=== PATIENT | female | born 1950 | race Caucasian/White ===

== ENCOUNTER → 2017-07-03 | Outpatient (CLI) | payer OTHER, MEDICAID | LOC: M.RAD 13:48 | DX: Z12.31 Encounter for screening mammogram for malignant neoplasm of breast (principal); M81.0 Age-related osteoporosis without current pathological fracture; I10 Essential (primary) hypertension; Z78.0 Asymptomatic menopausal state ==

== ENCOUNTER → 2017-07-27 | Outpatient (CLI) | payer OTHER, MEDICAID ==
--- NOTE | 2017-07-27 14:47 | EXE ---
[place] [address] STRESS ECHOCARDIOGRAM Name: AYALAJEFFRY BOOTHE Room: [facility]#: [id number] Admission: 07/27/17 Attend Phys: Lars Roberts MD Discharge: Date of : 54 Date of Service: 07/27/17 1446 Report #: [id number] THIS REPORT FOR: //name// APPROVED REPORT Study performed: 07/27/2017 13:12:47 Exam: Stress Echocardiogram Indication: Chest pain Patient Location: Out-Patient Stress Nurse: Muna Kulkarni RN Supervising Physician: Stanislaw Livingston MD Status: routine Ht: 5 ft 2 in HR: 73 bpm BP: 103/76 mmHg Rhythm: NSR Medical History Cardiac Risk Factors: HTN, Hyperlipidemia, DM Procedure The patient underwent an Exercise Stress Test using the Chace Protocol. Blood pressure, heart rate, and EKG were monitored. An Echocardiogram was performed by recreational therapy technician in four stages in quad fashion. At peak stress, four selected images were obtained and placed side by side with resting images for comparison. Stress Test Details Stress Test: Exercise stress testing was performed using a Chace protocol. HR Resting HR: 73 bpm Max Heart Rate (APMHR): 155 bpm Max HR Achieved: 152 bpm Target HR (85% APMHR): 131 bpm % of APMHR: 98 Recovery HR: 83 bpm HR response to stress: Normal HR response to stress BP Resting BP: 103/76 mmHg Max BP: 187/84 mmHg Recovery BP: 105/71 mmHg ECG Resting ECG: [place] [address] STRESS ECHOCARDIOGRAM Name: JEFFRY AYALA Room: [facility]#: [id number] Admission: 07/27/17 Attend Phys: Lars Roberts MD Discharge: Date of : 54 Date of Service: 07/27/17 1446 Report #: [id number] Stress ECG: Sinus Rhythm ST Change: Normal Recovery ECG: Sinus Rhythm Recovery ST Change: Normal Clinical Reason for Termination: Maximal effort Stress Symptoms: Fatigue Exercise duration: 4.5 min 7 sec Highest Stage Achieved: Stage 2: 2.5 mph at 12% grade. Exercise capacity: 7.05 METs Stress ECG Conclusion negative ecg Pre-Stress Echo The resting Echocardiogram showed normal left ventricular contractility with an estimated Ejection Fraction of about 60-65%. LV chamber size decreases, LV ejection fraction increases, no new wall motion abnormalities are seen. Conclusion Clinical Response: Non-ischemic Exercise Capacity: reduced Stress ECG Response: Non-ischemic Stress Echo Images: Non-ischemic Negative stress echo for ischemia at the level of exercise achieved Other Information Study Quality: Good <Conclusion> Negative stress echo for ischemia at the level of exercise achieved <ELECTRONICALLY SIGNED> By: Stanislaw Livingston MD, FACC 07/27/17 1446 1446 1446 Stanislaw Livingston MD, FACC /INF
== END ==
LOC: M.CRD 12:36
DX: I10 Essential (primary) hypertension (principal)

== ENCOUNTER 2018-03-10 19:19 | Emergency (ER) | payer OTHER, MEDICAID ==
[~2018-03-10] VITALS: Ht 162.6 cm; Wt 70.3 kg
[2018-03-10] MEDS ORDERED: ASPIR 8181 MG PO (19:30)
[2018-03-10] MEDS ORDERED: LIPITOR40 MG PO (19:31)
[2018-03-10] MEDS ORDERED: KERYDIN10 ML TP (19:31)
[2018-03-10] MEDS ORDERED: SYNTHROID25 MC1 PO (19:31)
[2018-03-10] MEDS ORDERED: GLUCOPHAGE XR500 MG (19:32)
[2018-03-10] MEDS ORDERED: NEXIUM40 MG PO (19:32)
[2018-03-10] MEDS ORDERED: LISINOPRIL10 MG PO (19:32)
[2018-03-10] MEDS ORDERED: ANTIVERT25 MG PO (19:32)
[2018-03-10] MEDS ORDERED: SKELAXIN 800 M800 M1 PO (19:33)
[2018-03-10] MEDS ORDERED: BACTRIM DS TAB1 EACH PO (19:36)
[2018-03-10] MEDS ORDERED: HYDROXYZINE HCL25 M1 PO (19:36)
[2018-03-10 19:47] VITALS: BP 167/80
== END 2018-03-10 19:48 | disposition home or self-care (01) ==
LOC: M.ERS 19:19
DX: L50.9 Urticaria, unspecified (principal); I10 Essential (primary) hypertension; Z90.710 Acquired absence of both cervix and uterus; W57.XXXA Bitten or stung by nonvenomous insect and other nonvenomous arthropods, initial encounter; Y93.89 Activity, other specified; Y92.89 Other specified places as the place of occurrence of the external cause; Y99.8 Other external cause status

== ENCOUNTER → 2018-08-29 | Outpatient (CLI) | payer OTHER, MEDICAID ==
[~2018-08-29] MED LIST: ANTIVERT25 MG PO; ASPIR 8181 MG PO; BACTRIM DS TAB1 EACH PO; GLUCOPHAGE XR500 MG; HYDROXYZINE HCL25 M1 PO; KERYDIN10 ML TP; LIPITOR40 MG PO; LISINOPRIL10 MG PO; NEXIUM40 MG PO; SKELAXIN 800 M800 M1 PO; SYNTHROID25 MC1 PO
== END ==
LOC: M.RAD 11:00
DX: Z12.31 Encounter for screening mammogram for malignant neoplasm of breast (principal)

== ENCOUNTER → 2019-05-01 | Outpatient (CLI) | payer OTHER, MEDICAID | LOC: M.ULTRA 04-30 09:00 | DX: R16.0 Hepatomegaly, not elsewhere classified (principal); R63.0 Anorexia; Z88.8 Allergy status to other drugs, medicaments and biological substances ==

== ENCOUNTER → 2019-10-17 | Outpatient (CLI) | payer OTHER, MEDICAID | LOC: M.RAD 08-09 14:03 | PROVIDERS: ATTEND Nurse Practitioner | DX: Z12.31 Encounter for screening mammogram for malignant neoplasm of breast (principal); Z00.00 Encounter for general adult medical examination without abnormal findings; Z78.0 Asymptomatic menopausal state ==

== ENCOUNTER → 2020-09-29 | Outpatient (CLI) | payer OTHER, MEDICAID | LOC: M.RAD 13:00 | PROVIDERS: ATTEND Nurse Practitioner | DX: Z12.31 Encounter for screening mammogram for malignant neoplasm of breast (principal); N64.89 Other specified disorders of breast ==

== ENCOUNTER 2020-12-08 21:20 | Emergency (ER) | payer OTHER, MEDICAID ==
[~2020-12-08] VITALS: Ht 160 cm; Wt 73.9 kg
[2020-12-08] MEDS ORDERED: HYDROCHLOROTH12.5 M2 PO (21:37)
[2020-12-08] MEDS ORDERED: ROSUVASTATIN CA20 MG PO (21:38)
[2020-12-08] MEDS ORDERED: PROAIR HFA8.5 GM INH (21:38)
[2020-12-08] MEDS ORDERED: MACROBID 100 M100 MG PO (21:38)
[2020-12-08] MEDS ORDERED: TRADJENTA5 MG (21:38)
[2020-12-08 21:49] LABS: URINE BILIRUBIN NEGATIVE (Negative); URINE BLOOD NEGATIVE (Negative); URINE CLARITY CLEAR; URINE COLOR YELLOW; URINE GLUCOSE-RANDOM NEGATIVE (Negative); URINE KETONES NEGATIVE (Negative); URINE LEUKOCYTES 1+ (Negative); URINE NITRITE NEGATIVE (Negative); URINE PROTEIN NEGATIVE (Negative); URINE UROBILINOGEN 0.2 E.U./dl (0.2-1.0)
[2020-12-08 21:57] LABS: ABSOLUTE BASOPHILS 0.1 thou/uL (0.0-0.2); ABSOLUTE EOSINOPHILS 0.1 thou/uL (0.0-0.7); ABSOLUTE LYMPHOCYTES 2.6 thou/uL (0.8-5.3); ABSOLUTE MONOCYTES 0.7 thou/uL (0.0-1.2); ABSOLUTE NEUTROPHILS 7.9 thou/uL (1.6-8.1); BASOPHILS 0.6 %; EOSINOPHILS 0.5 %; HEMATOCRIT 39.7 % (37.0-47.0); HEMOGLOBIN 13.5 gm/dL (12.0-15.0); LYMPHOCYTES 23.3 %; MCH 30.9 pg (26.0-34.0); MCHC 33.9 g/dL (28.0-37.0); MPV 8.6 fl. (7.2-11.1); NUCLEATED RBCS 0 /100WBC; PLATELET COUNT* 425 thou/uL (150-400); POLYS 69.6 %; RBC 4.36 mil/uL (4.20-5.00); WBC 11.4 thou/uL (4.0-11.0)
[2020-12-08 22:05] LABS: CALCIUM 9.6 mg/dL (8.5-10.1); CREATININE 0.9 mg/dL (0.6-1.3); POTASSIUM 3.6 mmol/L (3.5-5.1)
[2020-12-08 22:07] LABS: CASTS None Seen /LPF (None Seen); CRYSTALS None Seen /LPF (None Seen); MUCUS None Seen strn/LPF (None Seen); SQUAMOUS 0-3 Few /LPF (0-3)
[2020-12-08 22:08] LABS: BACTERIA None Seen /HPF (None Seen); URINE WBC 0-5 Rare /HPF (0-5)
[2020-12-08 22:09] LABS: URINE RBC None Seen /HPF (0-2)
[2020-12-08 22:21] LABS: ALBUMIN 4.4 g/dL (3.4-5.0); TOTAL BILIRUBIN 0.4 mg/dL (<0.1-1.0); TOTAL PROTEIN 7.9 g/dL (6.4-8.2)
[2020-12-09] MEDS ORDERED: ZOFRAN ODT4 MG PO (00:43)
[2020-12-09] MEDS ORDERED: MACROBID 100 M100 M1 PO (00:43)
[2020-12-09] MEDS ORDERED: HYDROCODON-ACE1 EAC7 PO (01:32)
[2020-12-09] MEDS ORDERED: IBUPROFEN 800800 MG PO (01:32)
[2020-12-09 01:45] VITALS: BP 123/75
--- NOTE | 2020-12-09 12:15 | EKG ---
[place] [address] ELECTROCARDIOGRAM REPORT Name: JEFFRY AYALA Room: [facility]#: [id number] Admission: 12/08/20 Attend Phys: Discharge: 12/09/20 Date of : 54 Date of Service: 12/08/202156 Report #: [id number] THIS REPORT FOR: //name// [facility] ED Test Date: 2020-12-08 Test Time: 21:57:23 Pat Name: JEFFRY AYALA Department: Room: Gender: F Enforcement Manager: [facility] : 1950 Requested By: Braulio Romo Order Number: [id number] MD: Lars Roberts Measurements Intervals [place] Rate: 71 P: 28 MA: 168 QRS: -26 QRSD: 98 T: 40 QT: 398 QTc: 433 Interpretive Statements Sinus rhythm Atrial premature complex Borderline left axis deviation Borderline low voltage, extremity leads Baseline wander in lead(s) II,III,aVF No previous ECG available for comparison Electronically Signed On 12-09-2020 12:14:49 CDT by Lars Roberts [email or web address] <ELECTRONICALLY SIGNED> By: Lars Roberts MD, FAC 12/09/20 1214 56 Lars Roberts MD, FAC /EPI
== END 2020-12-09 01:45 | disposition home or self-care (01) ==
LOC: M.ERS 21:20
PROVIDERS: Physician Assistant
DX: N39.0 Urinary tract infection, site not specified (principal); Z20.822 Contact with and (suspected) exposure to COVID-19; R11.2 Nausea with vomiting, unspecified; I10 Essential (primary) hypertension; E11.9 Type 2 diabetes mellitus without complications; E78.00 Pure hypercholesterolemia, unspecified; Z79.82 Long term (current) use of aspirin; Z90.710 Acquired absence of both cervix and uterus; Z90.89 Acquired absence of other organs; Z88.8 Allergy status to other drugs, medicaments and biological substances

== ENCOUNTER → 2021-01-05 | Outpatient (CLI) | payer OTHER, MEDICAID ==
[~2021-01-05] MED LIST changes: +HYDROCHLOROTH12.5 M2 PO; +HYDROCODON-ACE1 EAC7 PO; +IBUPROFEN 800800 MG PO; +MACROBID 100 M100 M1 PO; +MACROBID 100 M100 MG PO; +PROAIR HFA8.5 GM INH; +ROSUVASTATIN CA20 MG PO; +TRADJENTA5 MG; +ZOFRAN ODT4 MG PO
== END ==
LOC: M.MRI 12-17 15:52
PROVIDERS: ATTEND Specialist
DX: M47.22 Other spondylosis with radiculopathy, cervical region (principal); M47.24 Other spondylosis with radiculopathy, thoracic region; M54.2 Cervicalgia; M54.6 Pain in thoracic spine

== ENCOUNTER → 2021-01-06 | Outpatient (CLI) | payer OTHER, MEDICAID | LOC: M.MRI 13:10 | PROVIDERS: ATTEND Orthopaedic Surgery | DX: M19.012 Primary osteoarthritis, left shoulder (principal); M75.122 Complete rotator cuff tear or rupture of left shoulder, not specified as traumatic; M25.78 Osteophyte, vertebrae ==

== ENCOUNTER → 2021-01-27 | Outpatient (CLI) | payer OTHER, MEDICAID | LOC: M.PC 09:40 | PROVIDERS: ATTEND Physical Medicine & Rehabilitation | DX: M54.2 Cervicalgia (principal); M25.512 Pain in left shoulder; I10 Essential (primary) hypertension; E11.9 Type 2 diabetes mellitus without complications; E78.00 Pure hypercholesterolemia, unspecified; Z90.710 Acquired absence of both cervix and uterus ==

== ENCOUNTER → 2021-03-31 | Outpatient (CLI) | payer OTHER, MEDICAID | LOC: M.PC 09:58 | PROVIDERS: ATTEND Physical Medicine & Rehabilitation | DX: M50.322 Other cervical disc degeneration at C5-C6 level (principal); M48.02 Spinal stenosis, cervical region; M47.812 Spondylosis without myelopathy or radiculopathy, cervical region; M25.512 Pain in left shoulder ==

== ENCOUNTER → 2021-04-07 | Outpatient (CLI) | payer OTHER, MEDICAID | END | disposition home or self-care (01) | LOC: M.PC 09:59 | PROVIDERS: ATTEND Physical Medicine & Rehabilitation | DX: M54.12 Radiculopathy, cervical region (principal); M54.2 Cervicalgia; M25.512 Pain in left shoulder; I10 Essential (primary) hypertension; E11.9 Type 2 diabetes mellitus without complications; Z98.890 Other specified postprocedural states; Z79.899 Other long term (current) drug therapy; Z88.8 Allergy status to other drugs, medicaments and biological substances ==

== ENCOUNTER → 2021-04-19 | Outpatient (CLI) | payer OTHER, MEDICAID | LOC: M.PC 10:01 | PROVIDERS: ATTEND Physical Medicine & Rehabilitation | DX: S22.32XA Fracture of one rib, left side, initial encounter for closed fracture (principal); M47.22 Other spondylosis with radiculopathy, cervical region; M50.122 Cervical disc disorder at C5-C6 level with radiculopathy; M48.02 Spinal stenosis, cervical region; M19.012 Primary osteoarthritis, left shoulder; X58.XXXA Exposure to other specified factors, initial encounter; Y93.89 Activity, other specified; Y92.89 Other specified places as the place of occurrence of the external cause; Y99.8 Other external cause status ==